=== PATIENT | male | born 1995 | race Caucasian/White ===

== ENCOUNTER 2021-08-06 11:38 | Emergency (ER) | payer BC, OTHER, SELFPAY ==
--- NOTE | 2021-08-06 11:47 | ED_ITS ---
HPI - Male Genitourinary General: Stated complaint: LOWER ABD PAINS History of Present Illness: HPI Narrative: Patient says he has bilateral flank pain but he woke up with right flank pain that radiates to his abdomen. Said he had a fever 104 2 hours ago. Also having some dysuria and decreased output. Patient states he has had a history of kidney surgery the stone removal. Patient denies any cough muscle aches headache loss of taste or smell. Slight burning with urination MD Complaint: dysuria and other (Flank pain) Onset (ago): hour(s) Duration: constant Location: right flank and left flank Radiation: abdomen Severity: moderate Severity scale (1-10): 4 Quality: aching and burning Relieving factors: none Exacerbating factors: urination Associated symptoms: Reports dysuria, fevers/chills and other (Fever); Deny nausea or vomiting Review of Systems Const: Denies: fever(s), chills or body aches Eyes: Denies: change in vision or blurry vision ENMT: Denies: throat pain or nasal congestion Card: Denies: chest pain or dyspnea on exertion Resp: Denies: dyspnea, productive cough or non-productive cough GI: Denies: abdominal pain, nausea or vomiting : Reports: flank pain, dysuria and urinary urgency; Denies: difficulty urinating Musc: Denies: extremity pain Skin/Breast: Denies: rash Neuro: Denies: headache(s) Psych: Denies: anxiety or depression Jason/Lymph: Denies: easy bruising MDM - Male MDM Narrative: Medical decision making narrative: SentBrief history and physical exam was performed as part of the triage process. Due to current ED wait time patient will be placed in waiting room until a room becomes available. Explained to patient he/she will be seen in order of severity. Patient is currently safe to wait in the waiting room until we can get them placed. Patient informed that if condition worsens at any time to please let the motel front desk attendant know. Him started this morning. Patient does not appear in acute distress presently. 1149. Coding Level of Care Code ED Executive Staff Assistant for Luna Traylor
[2021-08-06 12:04] LABS: Add Urine Microscopic? NO; Charge for UA Resulting for Rev
[2021-08-06 12:42] LABS: Urine Appearance Clear (CLEAR); Urine Color Yellow (Yellow)
[2021-08-06 12:43] LABS: Bilirubin Urine Neg (Negative); Blood Urine Neg (Negative); Glucose Urine UA Norm (Normal); Ketones Urine Negative (Negative); Leukocyte Esterase Urine Negative (Negative); Nitrate Urine Negative (Negative); Protein Urine Neg (Negative); Urobilinogen Urine Norm (Negative); pH Urine 6 (5-7)
== END 2021-08-06 13:03 | disposition left against medical advice (07) ==
PROVIDERS: Emergency Provider Nurse Practitioner Family; PCP Family Medicine
DX: R10.9 Unspecified abdominal pain (principal); R30.0 Dysuria; Z53.21 Procedure and treatment not carried out due to patient leaving prior to being seen by health care provider
CPT/HCPCS: 81003

== ENCOUNTER → 2022-12-28 18:30 | Outpatient (BNVA) | payer BC, OTHER, SELFPAY | PROVIDERS: PCP Family Medicine; Visit Provider Emergency Medicine | DX: N39.0 Urinary tract infection, site not specified (principal) | CPT/HCPCS: 81000 ==